=== PATIENT | female | born 1980 | race African-American/Black ===

== ENCOUNTER 2016-12-23 09:23 | Inpatient (IN) | payer OTHER ==
[~2016-12-23] VITALS: Ht 162.6 cm; Wt 88.9 kg
[~2016-12-23 09:23] MED LIST: IBUP-1636 PO; METH500T PO
[2016-12-23 10:21] LABS: BASOPHILS % 1.2 % (0.0-2.0); EOSINOPHILS % 1.9 % (0.0-5.0); HEMATOCRIT. 38.2 % (36.0-48.0); LYMPHOCYTES % 50.9 % (20.0-50.0); MEAN CORPUSCULAR HEMOGLOBIN 31.3 pg (28.0-32.0); MEAN CORPUSCULAR VOLUME 92.1 fL (81.0-99.0); MEAN PLATELET VOLUME 9.4 fl (7.4-10.4); MONOCYTES % 8.2 % (2.0-8.0); NEUTROPHILS % 37.8 % (40.0-76.0); PLATELET 217 x1000/uL (130-400); RED BLOOD CELL COUNT 4.15 mill/uL (4.2-5.4); RED CELL DISTRIBUTION WIDTH 13.6 % (11.6-14.6)
[2016-12-23 10:24] LABS: CLARITY URINE CLEAR (CLEAR); COLOR URINE YELLOW (YELLOW); GLUCOSE URINE NEGATIVE (NEGATIVE); KETONES URINE NEGATIVE (NEGATIVE); LEUKOCYTE ESTERASE URINE NEGATIVE (NEGATIVE); NITRITE URINE NEGATIVE (NEGATIVE); OCCULT BLOOD URINE 2+ (NEGATIVE); PH URINE 6.5 (4.5-8.0); PROTEIN URINE NEGATIVE (NEGATIVE); SPECIFIC GRAVITY URINE 1.019 (1.005-1.030)
[2016-12-23 10:28] LABS: UCG SCREEN NEGATIVE
[2016-12-23 10:30] LABS: PROTHROMBIN TIME 10.7 sec (9.4-11.6)
[2016-12-23 10:32] LABS: CARBON DIOXIDE 27 mEq/L (21-32); CHLORIDE 108 mEq/L (98-107)
[2016-12-23] MEDS ORDERED: LACTATED RINGERS 1,000 ML IV SCH (11:00)
[2016-12-23] MEDS ORDERED: LORA-249 PO (11:21)
[2016-12-23] MEDS ORDERED: HYDR-519 PO (11:21)
[2016-12-23] MEDS ORDERED: VASOPRESSIN 20 UNIT/ML 1ML ONE (11:46)
[2016-12-23] MEDS ORDERED: METHYLENE BLUE 50 MG/10 ML AMP IV ONE (12:06)
[2016-12-23] MEDS ORDERED: MIDAZOLAM HCL 2 MG/2 ML VIAL ONE (12:15)
[2016-12-23] MEDS ORDERED: FENTANYL CITRATE/PF 50MCG/ML 2ML VIAL ONE (12:15)
[2016-12-23] MEDS ORDERED: PROPOFOL 200MG/20ML VIAL IV ONE ×2 (12:17→16:10)
[2016-12-23] MEDS ORDERED: LIDOCAINE HCL 1% 20ML VIAL (Pyxis) INJ ONE (12:17)
[2016-12-23] MEDS ORDERED: CEFAZOLIN SODIUM 1000MG/VIAL ONE (12:17)
[2016-12-23] MEDS ORDERED: SUCCINYLCHOLINE CHLORIDE 200MG/10ML VIAL IV ONE (12:17)
[2016-12-23] MEDS ORDERED: ALBUTEROL 90MCG/PUFF 17GM INHALER INH ONE (12:39)
[2016-12-23] MEDS ORDERED: EPHEDRINE SULFATE 50MG/ML VIAL ONE (12:49)
[2016-12-23] MEDS ORDERED: ROCURONIUM BROMIDE 10MG/ML VIAL 5ML IV ONE (12:53)
[2016-12-23] MEDS ORDERED: HYDROMORPHONE HCL/PF 2MG/ML (OR) ONE (12:59)
[2016-12-23] MEDS ORDERED: LABETALOL HCL 20MG/4ML CARPUJECT IV PRN (13:15)
[2016-12-23] MEDS ORDERED: ONDANSETRON HCL 4MG/2ML VIAL IV PRN (13:15)
[2016-12-23] MEDS ORDERED: MEPERIDINE HCL/PF 25MG/ML CPJ IV PRN (13:15)
[2016-12-23] MEDS ORDERED: ONDANSETRON HCL 4MG/2ML VIAL ONE (13:44)
[2016-12-23] MEDS ORDERED: METOCLOPRAMIDE HCL 10MG/2ML VIAL ONE (13:44)
[2016-12-23] MEDS ORDERED: SKIN ADHESIVE 0.7 GM EA TOP ONE ×2 (15:23→15:31)
[2016-12-23] MEDS ORDERED: NEOSTIGMINE METHYLSULFATE 1MG/ML 10 ML VIAL ONE (15:26)
[2016-12-23] MEDS ORDERED: GLYCOPYRROLATE 0.2 MG/ML 2ML VIAL ONE (15:26)
[2016-12-23] MEDS: HYDROMORPHONE HCL/PF 2MG/ML CPJ IV PRN ×5 (16:17→16:39)
[2016-12-23] MEDS ORDERED: HYDROMORPHONE HCL/PF 2MG/ML CPJ IV PRN (16:30)
[2016-12-23] MEDS ORDERED: IBUPROFEN 600MG TABLET PO PRN (16:30)
[2016-12-23] MEDS: DEXT 5%/LACTATED RINGERS 1,000 ML IV SCH (17:16)
[2016-12-23 20:00] VITALS: BP 107/63
[2016-12-24] VITALS: BP 112/64
[2016-12-24] MEDS: DEXT 5%/LACTATED RINGERS 1,000 ML IV SCH ×2 (02:03→15:51)
[2016-12-24 04:00] VITALS: BP 122/66
[2016-12-24 06:51] LABS: BASOPHILS % 0.2 % (0.0-2.0); HEMATOCRIT. 37.9 % (36.0-48.0); HEMOGLOBIN. 12.8 g/dL (12.0-16.0); LYMPHOCYTES % 13.2 % (20.0-50.0); MEAN CORPUSCULAR HEMOGLOBIN 31.6 pg (28.0-32.0); MEAN CORPUSCULAR VOLUME 93.4 fL (81.0-99.0); MEAN PLATELET VOLUME 9.5 fl (7.4-10.4); MONOCYTES % 4.9 % (2.0-8.0); NEUTROPHILS % 81.7 % (40.0-76.0); PLATELET 214 x1000/uL (130-400); RED BLOOD CELL COUNT 4.06 mill/uL (4.2-5.4); RED CELL DISTRIBUTION WIDTH 13.6 % (11.6-14.6)
[2016-12-24 08:00] VITALS: BP 108/59
[2016-12-24 11:36] VITALS: BP 105/55
[2016-12-24] MEDS: HYDROCODONE/ACETAMINOPHEN 5/325MG TABLET PO PRN ×2 (11:54→22:02)
[2016-12-24 16:00] VITALS: BP 114/52
[2016-12-24 20:00] VITALS: BP 110/51
[2016-12-25] VITALS: BP 106/51
== END 2016-12-25 11:43 | disposition home or self-care (01) | DRG 743 ==
LOC: OR 09:23 → 8WST 17:00
PROVIDERS: ADMIT Obstetrics & Gynecology Obstetrics; ATTEND Obstetrics & Gynecology Obstetrics
PROC: 0UT7FZZ Resection of Bilateral Fallopian Tubes, Via Natural or Artificial Opening With Percutaneous Endoscopic Assistance (ICD-10-PCS; 2016-12-23)
PROC: 0UT9FZZ Resection of Uterus, Via Natural or Artificial Opening With Percutaneous Endoscopic Assistance (ICD-10-PCS; principal; 2016-12-23 12:00)
DX: N92.0 Excessive and frequent menstruation with regular cycle (principal); N73.6 Female pelvic peritoneal adhesions (postinfective); N80.0 Endometriosis of uterus; N80.3 Endometriosis of pelvic peritoneum; Z83.3 Family history of diabetes mellitus; Z98.51 Tubal ligation status; Z82.61 Family history of arthritis; Z80.9 Family history of malignant neoplasm, unspecified; Z72.89 Other problems related to lifestyle
CPT/HCPCS: 36415; 73706; 80048; 81001; 81025; 85025; 85610; 85730; 86850; 86900; 88302; 88305; 88307; C1725; J0171; J0330; J0690; J1170; J2175; J2250; J2405; J2704; J2710; J2765; J3010; J3490; J7120; J7121; Q9968